=== PATIENT | male | born 1985 | race Caucasian/White ===

== ENCOUNTER 2016-06-14 09:45 | Day surgery (SDC) | payer BC ==
[~2016-06-14] VITALS: Ht 188 cm; Wt 97.7 kg
--- NOTE | ~2016-06-14 | OR ---
PATIENT'S NAME: RIN WIN [facility] AGE: 30 Y [address] ROOM: [place] [id number] [place]ATION: [facility] [place] DATE: 06/14/2016 OR/Procedure Report DISCHARGE DATE: 06/14/2016 FAMILY PHYSICIAN: Lukas Mireles MD ATTENDING PHYSICIAN: Rin Hollis SURGEON: Rin Hollis MD PHARMACY TECHNICIAN INFUSION: None. DATE OF PROCEDURE: 06/14/2016 PREOPERATIVE DIAGNOSES: 1. Chronic pansinusitis with nasal polyposis. 2. Nasal airflow obstruction. POSTOPERATIVE DIAGNOSES: 1. Chronic pansinusitis with nasal polyposis. 2. Nasal airflow obstruction. PROCEDURES PERFORMED: 1. Functional endoscopic sinus surgery including bilateral maxillary antrostomies with tissue removal. 2. Bilateral total ethmoidectomy. 3. Bilateral frontal sinusotomy with tissue removal. 4. Bilateral sphenoidotomy with tissue removal. 5. Placement of Propel stent in bilateral frontal sinuses. 6. Bilateral inferior turbinate lateralization. 7. Stealth navigation. 8. Bilateral nasal polypectomy. ANESTHESIA: General endotracheal. COMPLICATIONS: None. BLOOD LOSS: 75 mL. SPECIMENS: Left sinus contents. FINDINGS: 1. Significant nasal polyposis throughout both nasal cavities entering into the maxillary, frontal, and sphenoid sinuses. 2. Evidence of previous surgery including small maxillary antrostomies, partial uncinectomies, and anterior ethmoidectomy. INDICATION: The patient is a 30-year-old male with a history of chronic pansinusitis and nasal polyposis, who has undergone previous sinus surgery with minimal relief. He presented to clinic and was identified to have PATIENT'S NAME: RIN WIN [facility] AGE: 30 Y [address] ROOM: [place] [address] LOCATION: [facility] [place]MIT DATE: 06/14/2016 OR/Procedure Report DISCHARGE DATE: 06/14/2016 FAMILY PHYSICIAN: Lukas Mireles MD ATTENDING PHYSICIAN: Rin Hollis recurrent polyposis as well as evidence of chronic sinusitis throughout all of his sinuses, and therefore, surgery was recommended and he provided informed consent. DESCRIPTION OF PROCEDURE: The patient was brought from the preoperative area to the operative suite, placed on table in supine position. All pressure points were padded. Time-out was performed correctly identifying the patient and procedure. General endotracheal anesthesia was initiated. The patient's nose was prepped with injection of 1% lidocaine with epinephrine along the angular artery from the nasal spine, and thereafter, Afrin-soaked pledgets were placed on each side. The [employer] navigation system was attached and calibrated. The patient was prepped and draped in a clean fashion. The pledgets were removed from the left side, and we began with surgery on this side. Injection was performed with 1% lidocaine with epinephrine along the roof of the middle turbinate, the insertion of the middle turbinate, and along the base of the middle turbinate. After these injections were performed, microdebrider was used to remove a large anterior polyp. Portion of this was biopsied and sent for permanent specimen. Microdebrider as well as sharp dissection were utilized to widen the previously created maxillary antrostomy and complete the uncinectomy. The anterior and posterior ethmoids were thereafter completely cleaned out of polyps and remaining tissue. The superior turbinate was resected on its inferior half and the sphenoid os was identified and widened significantly, and tissue was removed from this area as well. Skull base was then cleaned off and the frontal sinus entered with Stealth navigation and thereafter taken down with a combination of sharp and powered instrumentation preserving mucosa wherever possible. No evidence of invasion into lamina papyracea, skull base, or other critical structures was noted. Afrin-soaked pledgets were placed on this side and we returned our attention to the contralateral side. This dissection proceeded in the exact same fashion with similar findings and polypoid tissue throughout all the sinuses, ethmoids, maxillaries, sphenoid, and frontals. Once again, widening was performed of the previously made maxillary antrostomies. The remaining sinuses were dissected fully. Afrin-soaked pledgets were once again placed on this side. Both sides were irrigated thoroughly and suctioned clean. Thereafter, mini Propel stents were placed in the bilateral frontal sinuses. A 4-0 plain gut suture was placed through and through the middle turbinate and sutured down together. MeroPacks were placed into each ethmoid cavities and injected with 1 mL of 40 mg/mL Kenalog on each side. Thereafter, the inferior turbinates which were not found to be enlarged were not resected but rather lateralized on each side. Once again, the nasopharynx was suctioned clean. The belly was suctioned out with an OG tube. This concluded the procedure. The patient was returned to the care of Anesthesia for extubation and transferred to recovery room in stable condition. PATIENT'S NAME: RIN WIN [facility] AGE: 30 Y [address] ROOM: [place], [place] [id number] LOCATION: [facility] [place] DATE: 06/14/2016 OR/Procedure Report DISCHARGE DATE: 06/14/2016 FAMILY PHYSICIAN: Lukas Mireles MD ATTENDING PHYSICIAN: Rin Hollis MD DEBBIE CARRANZA/modl /[id number] d: 06/14/16 2319 t: 06/21/16 0721, OPERATIVE SUMMARY
[~2016-06-14 09:45] MED LIST: AUGMENTIN 875-1 EACH PO; DAILY VALUE1 EACH PO; DELTASONE10 MG PO; ZYRTEC10 MG PO
[2016-06-14] MEDS ORDERED: NORCO 5-325 TA1 EACH PO (18:06)
== END 2016-06-14 18:50 | disposition disaster alternative care site (69) ==
LOC: GSDC 09:45
PROC: 099R4ZZ Drainage of Left Maxillary Sinus, Percutaneous Endoscopic Approach (ICD-10-PCS; principal; 2016-06-14)
PROC: 099Q4ZZ Drainage of Right Maxillary Sinus, Percutaneous Endoscopic Approach (ICD-10-PCS; 2016-06-14)
PROC: 09BV4ZZ Excision of Left Ethmoid Sinus, Percutaneous Endoscopic Approach (ICD-10-PCS; 2016-06-14)
PROC: 09BU4ZZ Excision of Right Ethmoid Sinus, Percutaneous Endoscopic Approach (ICD-10-PCS; 2016-06-14)
PROC: 09QT4ZZ Repair Left Frontal Sinus, Percutaneous Endoscopic Approach (ICD-10-PCS; 2016-06-14)
PROC: 09QS4ZZ Repair Right Frontal Sinus, Percutaneous Endoscopic Approach (ICD-10-PCS; 2016-06-14)
PROC: 09BK4ZZ Excision of Nasal Mucosa and Soft Tissue, Percutaneous Endoscopic Approach (ICD-10-PCS; 2016-06-14)
DX: J33.8 Other polyp of sinus (principal); J32.4 Chronic pansinusitis; J34.2 Deviated nasal septum; Z98.890 Other specified postprocedural states; Z79.899 Other long term (current) drug therapy
CPT/HCPCS: A9270; C2625; J1100; J1170; J2250; J2405; J2550; J3010; J3301; J7120